=== PATIENT | female | born 1940 | race Two or more races ===

== ENCOUNTER 2021-11-08 15:03 | Emergency (ER) | payer OTHER, MEDICARE ==
[~2021-11-08] VITALS: Ht 154.9 cm; Wt 62.3 kg
[2021-11-08 15:13] VITALS: BP 150/88
[2021-11-08] MEDS ORDERED: CEPH-510 PO (17:29)
== END 2021-11-08 18:13 | disposition home or self-care (01) ==
LOC: ER 15:03
DX: L84 Corns and callosities (principal); Z79.899 Other long term (current) drug therapy

== ENCOUNTER 2021-12-10 15:29 | Emergency (ER) | payer OTHER, MEDICARE ==
[~2021-12-10] VITALS: Ht 154.9 cm; Wt 60.0 kg
[~2021-12-10 15:29] MED LIST: CEPH-510 PO
[2021-12-10] MEDS ORDERED: dilTIAZem 25 MG/5 ML VIAL IV ONE (15:30)
[2021-12-10 16:07] LABS: Basophils # (auto) 0.1 10 ^3/uL (0-0.2); Basophils % (auto) 1.1 % (0.0-2.0); Eosinophils # (auto) 0.2 10 ^3/uL (0-0.8); Eosinophils % (auto) 2.6 % (0.0-7.0); Hematocrit 40.5 % (36.0-46.0); Hemoglobin 13.6 g/dL (12.2-16.2); Lymphocytes # (auto) 1.4 10 ^3/uL (0.4-5.4); Lymphocytes % (auto) 24.5 % (10.0-50.0); Mean Corpuscular Hemoglobin 32.3 pg (28.0-32.0); Mean Corpuscular Hgb Conc. 33.5 g/dL (32.0-36.0); Mean Corpuscular Volume 96.4 fL (80.0-100.0); Monocytes # (auto) 0.5 10 ^3/uL (0-1.3); Monocytes % (auto) 9.1 % (0.0-12.0); Neutrophils # (auto) 3.7 10 ^3/uL (1.6-8.6); Neutrophils % (auto) 62.7 % (37.0-80.0); Nucleated Red Blood Cells % 0.1 %; Red Blood Cells 4.21 10^6/uL (4.0-5.20); Red Cell Distribution Width 13.1 % (11.8-14.3); White Blood Cell 5.9 10^3/uL (4.4-10.8)
[2021-12-10 16:17] LABS: Albumin 3.1 g/dL (3.4-5.0); BUN/Creatinine Ratio 20.3; Calcium 7.7 mg/dL (8.5-10.1); Potassium 3.9 mmol/L (3.5-5.1)
[2021-12-10 16:26] LABS: Bilirubin, Total 0.8 mg/dL (0.2-1.0); Total Protein 5.9 g/dL (6.4-8.2)
[2021-12-10 16:28] LABS: INR 1.18 (0.9-1.15)
[2021-12-10] MEDS ORDERED: FUROSEMIDE 20 MG/2 ML VIAL IV ONE (18:15)
[2021-12-10] MEDS ORDERED: dilTIAZem 125mg/125ml BAG KIT 125 ML IV ONE (20:00)
[2021-12-10] MEDS ORDERED: IOHEXOL 350 MG/ML 100ML IJ ONE (20:16)
[2021-12-10 21:45] LABS: Urine Bacteria NONE SEEN /hpf (None Seen); Urine Blood TRACE /uL (Negative); Urine Specific Gravity 1.035 (1.001-1.035); Urine WBC 1 /hpf (0 - 5)
[2021-12-10 23:31] VITALS: BP 130/95
== END 2021-12-11 00:01 | disposition home or self-care (01) ==
LOC: ER 15:29 → EDBD 15:29 → ER 12-11 00:01
DX: I48.91 Unspecified atrial fibrillation (principal); I50.43 Acute on chronic combined systolic (congestive) and diastolic (congestive) heart failure; R79.1 Abnormal coagulation profile; Z90.49 Acquired absence of other specified parts of digestive tract; Z90.710 Acquired absence of both cervix and uterus; Z20.822 Contact with and (suspected) exposure to COVID-19
CPT/HCPCS: 36415; 71045; 71275; 80053; 81001; 83880; 84484; 85025; 85379; 85610; 85730; 87426; 93005; 96365; 96366; 96375; 99291; J1940; Q9967